=== PATIENT | female | born 1995 | race African-American/Black ===

== ENCOUNTER 2016-07-12 11:19 | Emergency (ER) | payer OTHER ==
[~2016-07-12] VITALS: Ht 157.5 cm; Wt 65.0 kg
[~2016-07-12 11:19] MED LIST: ONDA1TAB16 PO
[2016-07-12 11:21] VITALS: BP 124/66; PULSE 68; RESP 14; TEMP 98; O2SAT 99
[2016-07-12] MEDS ORDERED: PERM5CRE11 TOPICAL (11:43)
--- NOTE | 2016-07-12 11:45 | PD ---
HPI Chief Complaint: Skin Problem Time Seen by Provider: 11:41 Travel History International Travel<30 days: No Contact w/Intl Traveler<30days: No Traveled to known affect area: No History of Present Illness HPI 20-year-old female presents to the emergency department complaint of a rash to her chest, back, bilateral upper extremities 3 weeks. Rash is itchy. She was seen at urgent care about a week ago and was given a cream with no relief of symptoms. She says she thinks she has ringworm. Denies any new detergents, lotions, soaps, perfumes, and for mental closures, medications, foods. Denies fever, vomiting. Denies airway edema or difficulty breathing. Allergies to sulfa. Has no other medical complaints. No other midline factors or associated signs and symptoms. PFSH Past Medical History Diminished Hearing: No ?: Not : 1 Para: 0 : 1 Social History Alcohol Use: Yes (WEEKENDS, ALOT SOMETIMES) Tobacco Use: No Substance Use: Yes (MARIJUANA SOMETIMES) Allergies-Medications (Allergen,Severity, Reaction): Coded Allergies: Sulfa (Unverified Allergy, Mild, hives, 11/08/13) Reported Meds & Prescriptions Reported Meds & Active Scripts Active Elimite Topical (Permethrin) 5% Cream 1 Applic TOPICAL ONCE Zofran Tab (Ondansetron HCl) 4 Mg Tab 4 Mg PO Q6 PRN Review of Systems Except as stated in HPI: all other systems reviewed are Neg Physical Exam Narrative GENERAL: Well-nourished, well-developed female patient, in no acute distress; afebrile, nontoxic-appearing SKIN: Warm and dry. Generalized erythremic pimple-like rash to chest, back, left upper extremity; some areas appear excoriated. No areas with cellulitic process noted. HEAD: Atraumatic. Normocephalic. EYES: Pupils equal and round. No scleral icterus. No injection or drainage. ENT: Mucosa pink and moist. Airway patent. NECK: Trachea midline. CARDIOVASCULAR: Regular rate. RESPIRATORY: No accessory muscle use. GASTROINTESTINAL: Rounded. MUSCULOSKELETAL: No obvious deformities. No clubbing. No cyanosis. No edema. NEUROLOGICAL: Awake and alert. Oriented 3. No obvious cranial nerve deficits. Motor grossly within normal limits. Normal speech. PSYCHIATRIC: Appropriate mood and affect; insight and judgment normal. Data Data Last Documented VS Vital Signs Date Time Temp Pulse Resp B/P Pulse Ox O2 Delivery O2 Flow Rate FiO2 07/12/16 11:21 98.0 68 14 124/66 99 MDM Medical Decision Making Medical Screen Exam Complete: Yes Emergency Medical Condition: Yes Medical Record Reviewed: Yes Differential Diagnosis Scabies, bedbugs, nonspecific rash or skin interruption Narrative Course 20-year-old female with possible scabies rash. I also discussed bedbugs. Patient afebrile and nontoxic-appearing. She denies fever, vomiting. She was seen in urgent care week ago and was given a medication which she does not know the name of, with no relief of symptoms. I will prescribe Elimite cream. Instructed patient to follow up with dermatology. Patient verbalizes understanding and agreement with treatment plan. Patient is medically cleared and stable for discharge. Discussed reasons to return to the emergency department. Instructed patient to follow up with primary care provider. Patient agrees with treatment plan. The patients vital signs are stable and the patient is stable for outpatient follow-up and treatment. Patient discharged home, stable and in no acute distress. Diagnosis Primary Impression: Rash and nonspecific skin eruption Referrals: Veterinary Laboratory Technician Primary Care Physician Patient Instructions: Acute Rash (ED), Bed Bugs (ED), General Instructions, Scabies (ED) Departure Forms: Tests/Procedures, Work Release Enter return to work date: July 13, 2016 Additional Instructions: Elimite cream as directed; repeat in one week as needed Soaking in cool water or apply cool, wet washcloths to irritated areas to minimize itching Apply anti-itch creams, such as calamine lotion, to relieve pain and itching as needed Dnhu-ill-tumincu antihistamines as needed and as directed to relieve allergic symptoms caused by scabies Wash all pillows, linens, blankets, etc. in hot water and dry in hot dryer Bag and all unwashable linens, Gypsy stuffed animals, etc. 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
== END 2016-07-12 12:14 | disposition home or self-care (01) ==
LOC: NEPK 11:19
DX: R21 Rash and other nonspecific skin eruption (principal)
CPT/HCPCS: 99283

== ENCOUNTER 2017-06-28 11:46 | Emergency (ER) | payer SELFPAY ==
[~2017-06-28] VITALS: Ht 157.5 cm; Wt 79.5 kg
[~2017-06-28 11:46] MED LIST changes: +PERM5CRE11 TOPICAL
[2017-06-28 12:03] VITALS: BP 125/59; PULSE 91; RESP 16; TEMP 98.6; O2SAT 99
--- NOTE | 2017-06-28 12:24 | PD ---
HPI Chief Complaint: Fall Time Seen by Provider: 12:08 Travel History International Travel<30 days: No Contact w/Intl Traveler<30days: No Traveled to known affect area: No History of Present Illness HPI 21-year-old female presents emergency department with injury to the left knee. Patient states she was "playing around" last evening when she "landed wrong" and hurt her left knee pop. She now has pain and swelling to the anterior knee below the patella. She is able to bear weight with difficulty. She has increased pain with flexion of the knee. She states it does not give out on her. Pain is currently 8 out of 10. She denies numbness, tingling, or weakness. She has no other injury. She is allergic to sulfa. PFS Past Medical History Diabetes: No Diminished Hearing: No : 1 Para: 0 : 1 Social History Alcohol Use: No Tobacco Use: No Substance Use: No Allergies-Medications (Allergen,Severity, Reaction): Coded Allergies: Sulfa (Sulfonamide Antibiotics) (Unverified Allergy, Mild, hives, 06/28/17) Reported Meds & Prescriptions Reported Meds & Active Scripts Active Elimite Topical (Permethrin) 5% Cream 1 Applic TOPICAL ONCE Zofran Tab (Ondansetron HCl) 4 Mg Tab 4 Mg PO Q6 PRN Review of Systems Except as stated in HPI: all other systems reviewed are Neg General / Constitutional: No: Fever Eyes: No: Visual changes HENT: No: Headaches Cardiovascular: No: Chest Pain or Discomfort Respiratory: No: Shortness of Breath Gastrointestinal: No: Abdominal Pain Genitourinary: No: Dysuria Musculoskeletal: Positive: Arthralgias, Limited ROM, Pain Skin: No Rash Neurologic: No: Weakness Psychiatric: No: Depression Endocrine: No: Polydipsia Hematologic/Lymphatic: No: Easy Bruising Physical Exam Narrative GENERAL: Patient appears in mild distress per SKIN: Warm and dry. Normal color. Normal turgor. No ecchymosis. No abrasion. HEAD: Atraumatic. Normocephalic. EYES: Pupils equal and round. No scleral icterus. No injection or drainage. ENT: No nasal bleeding or discharge. Mucous membranes pink and moist. Pharynx is clear. Airway is patent. NECK: Trachea midline. Supple and nontender CARDIOVASCULAR: Regular rate and rhythm. RESPIRATORY: No accessory muscle use. Clear to auscultation. Breath sounds equal bilaterally. MUSCULOSKELETAL: Extremities without clubbing, cyanosis, or edema. No obvious deformities. Patient has mild effusion to the left anterior knee. Pain is localized to the anterior tibial plateau. Pain is worse with flexion. There is no laxity. Exam is limited secondary to patient's pain. NEUROLOGICAL: Awake and alert. No obvious cranial nerve deficits. Motor grossly within normal limits. Five out of 5 muscle strength in the arms and legs. Normal speech. PSYCHIATRIC: Appropriate mood and affect; insight and judgment normal. Data Data Last Documented VS Vital Signs Date Time Temp Pulse Resp B/P (MAP) Pulse Ox O2 Delivery O2 Flow Rate FiO2 06/28/17 12:03 98.6 91 16 125/59 (81) 99 Orders Orders Knee, Complete (4vws) (06/28/17 12:09) Ice/Cold Pack (06/28/17 12:09) MDM Medical Decision Making Medical Screen Exam Complete: Yes Emergency Medical Condition: Yes Differential Diagnosis Left knee pain. Left knee strain. Left knee effusion. Possible fracture. Narrative Course X-ray of the left knee is ordered. Ice is applied. X-ray showed no acute fracture dislocation. Patient is placed in a knee immobilizer. Patient is given crutches as needed. Patient is given ibuprofen 600 mg 4 times daily #40 Patient is instructed to use frequent ice and elevation. Patient should return if symptoms do not improve or worsen in the next week. Diagnosis Primary Impression: Left knee sprain Qualified Codes: S83.92XA - Sprain of unspecified site of left knee, initial encounter Referrals: Primary Care Physician Patient Instructions: Crutch Instructions (ED), General Instructions, Knee Immobilizer (DC) Additional Instructions: X-ray showed no acute fracture dislocation. Patient is placed in a knee immobilizer. Patient is given crutches as needed. Patient is given ibuprofen 600 mg 4 times daily #40 Patient is instructed to use frequent ice and elevation. Patient should return if symptoms do not improve or worsen in the next week. Med/Other Pt SpecificInfo: Prescription(s) given Disposition: 01 DISCHARGE HOME Condition: Stable Juan Johnson June 28, 2017 12:24
[2017-06-28] MEDS ORDERED: IBUP-232 PO (12:25)
--- NOTE | 2017-06-28 12:44 | RADRPT ---
EXAM DATE/TIME: 06/28/2017 12:30 [facility] COMPARISON: No previous studies available for comparison. INDICATIONS : Left knee pain after jumping over a gate. MEDICAL HISTORY : None. SURGICAL HISTORY : None. ENCOUNTER: Initial ACUITY: 2 days PAIN SCORE: 10/10 LOCATION: Left knee. FINDINGS: Four view examination of the left knee demonstrates no evidence of fracture or dislocation. Bony min eralization is normal. The articular surfaces are intact. The suprapatellar soft tissues have a nor mal configuration. CONCLUSION: No acute fracture. David Barger MD on June 28, 2017 at 12:41 Board Certified Radiologist. This report was verified electronically.
== END 2017-06-28 13:27 | disposition home or self-care (01) ==
LOC: NEPK 11:46
DX: S83.92XA Sprain of unspecified site of left knee, initial encounter (principal); X58.XXXA Exposure to other specified factors, initial encounter
CPT/HCPCS: 73564; 99283; E0113; L1830